=== PATIENT | female | born 1955 | race Caucasian/White ===

== ENCOUNTER 2019-03-26 23:01 | Emergency (ER) | payer OTHER ==
[2019-03-27] MEDS ORDERED: Cephalexin 500 MG Cap PO STA (00:26)
[2019-03-27] MEDS ORDERED: Bupivacaine 0.5% 10 ML SDV INJECT ONE (00:26)
[2019-03-27] MEDS ORDERED: Lidocaine 1% 10 ML MDV INJECT ONE (00:26)
--- NOTE | 2019-03-27 00:28 | EDM.PDOC ---
ED HPI GENERAL MEDICAL PROBLEM - General Chief Complaint: Laceration Stated Complaint: HAND LACERATION Time Seen by Provider: 03/27/19 00:18 Source of Information: Reports: Patient, Other (Coworker) History Limitations: Reports: No Limitations - History of Present Illness INITIAL COMMENTS - FREE TEXT/NARRATIVE: Mrs. Newman is a very pleasant 63-year-old woman with no significant past medical history, who states that she slipped around 22:50 while at work at [employer], accidentally impaling her left thumb on a piece of metal. The metal entered just proximal to her MCP joint, exiting at the IP joint. The patient states that she was actually hung up on the metal, and someone had to come to her aid to get her off of the metal. Other than the lacerations to her thumb, she is otherwise uninjured. The patient states that her last tetanus vaccination was on 06/13/2018. The patient's PCP is Gifty Beal NP. 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 ED EXAM, SKIN/RASH Exam: See Below Exam Limited By: No Limitations General Appearance: Alert, WD/WN, No Apparent Distress Extremities: Other (There is an irregular laceration measuring about 2.5 cm, just proximal to the dorsal aspect of the patient's left first MCP joint. There is an additional roughly linear laceration measuring approximately 1 cm over the dorsal aspect of the first IP joint. The patient is able to extend her thumb fairly strongly, and she denies tingling or numbness to the thumb. Vascular status of the thumb appears to be intact.) ED SKIN PROCEDURES - Laceration/Wound Repair Left Hand Appearance: Subcutaneous, Irregular, Clean Distal NVT: Neuro & Vascular Intact, No Tendon Injury Anesthetic Type: Local Local Anesthesia - Lidocaine (Xylocaine): 1% Plain (50:50 admixture) Local Anesthesia - Bupivicaine (Marcaine): 0.5% Plain (50:50 admixture) Local Anesthetic Volume: 2cc Skin Prep: Providone-Iodine (Betadine) Exploration/Debridement/Repair: Wound Explored, In a Bloodless Field, Explored to Base, No Foreign Material Found Lac/Wound length In cm: 2.5 Suture Size: 3-0 # of Sutures: 5 Suture Type: Nylon (Ethilon), Interrupted, Simple Drain Placement: No Sterile Dressing Applied: Nurse Tetanus Status Addressed: Yes Complications: No Course - Vital Signs Last Recorded V/S: Last Vital Signs Temp 37.0 C 03/26/19 23:13 Pulse 61 03/26/19 23:13 Resp 17 03/26/19 23:13 BP 149/84 H 03/26/19 23:13 Pulse Ox 99 03/26/19 23:13 - Orders/Labs/Meds Meds: Medications Discontinued Medications Generic Name Dose Route Start Last Admin Trade Name Vishal PRN Reason Stop Dose Admin Bupivacaine HCl 10 ml 03/27/19 00:26 03/27/19 01:54 Sensorcaine-Mpf 0.5% INJECT 03/27/19 00:27 10 ml ONETIME ONE Administration Cephalexin 500 mg 03/27/19 00:26 03/27/19 02:24 Keflex PO 03/27/19 00:27 500 mg ONETIME STA Administration Lidocaine HCl 10 ml 03/27/19 00:26 03/27/19 01:54 Xylocaine 1% INJECT 03/27/19 00:27 10 ml ONETIME ONE Administration - Re-Assessments/Exams Free Text/Narrative Re-Assessment/Exam: 03/27/19 00:27 The patient has what is essentially a puncture wound to the dorsal aspect of her left thumb, entering by the MCP joint, exiting via the IP joint. I'm going to relatively loosely suture the proximal laceration, leaving the distal laceration open to allow drainage of the wound, and start the patient on Keflex , but she will need to follow-up with a Hand Surgeon, to make sure that there are no significant underlying tendinous injuries, and to monitor for an infection. 03/27/19 02:11 Following skin prep with Betadine, sterile towels were laid to establish a sterile field. The wound over the patient's left first MCP joint was infiltrated with a 50:50 admixture of lidocaine 1% without epinephrine and bupivacaine 0.5% without epinephrine, to good anesthetic effect. The wound was then loosely approximated with 5 simple interrupted sutures, using 3-0 Ethilon. The patient tolerated the procedure well. Antibiotics ointment will be applied to both the proximal and distal thumb lacerations, and each will be covered with a sterile dressing. The patient will be started on Keflex here in the ED, and I will refer her to a Hand Surgeon. I am told that Dr. Crisostomo will not be available for the rest of the month, therefore the patient will need to go to [place]. 03/27/19 02:22 Case discussed with [facility] at 02:16. Case then discussed with Dr. Trinidad, Hand Surgeon at [facility], at 02: 20. He agreed with the choice of antibiotic, and said that he can see the patient in his clinic tomorrow, 03/28/2019. Departure - Departure Time of Disposition: 02:23 Disposition: Home, Self-Care 01 Condition: Good Clinical Impression: Laceration of left thumb - Discharge Information *PRESCRIPTION DRUG MONITORING PROGRAM REVIEWED*: Not Applicable *COPY OF PRESCRIPTION DRUG MONITORING REPORT IN PATIENT JESS: Not Applicable Prescriptions: Cephalexin [Keflex] 1 tab PO Q6H #28 capsule Instructions: Laceration Care, Adult, [id number] Referrals: Gifty Beal NP [Primary Care Provider] - Michael Trinidad Sr, MD [Physician] - Forms: ED Department Discharge Additional Instructions: You were seen in the emergency room after accidentally impaling your left thumb on a piece of metal at work. There were 2 lacerations to your thumb, a larger proximal wound, and a smaller distal wound. The larger proximal wound was closed with 5 sutures, but the smaller distal wound was intentionally left unsutured, in order to allow the wound to drain. Keep the wounds clean with ordinary soap and water when you bathe. Pat dry, then apply a smear of bacitracin ointment to both of the wounds. Cover both wounds with a clean dressing, daily. Don't allow the wounds to get wet, other than when you are bathing. You have been started on the antibiotic Keflex. A prescription for Keflex has been sent to the [facility], located just south and across [address] from [facility]. Take one tablet of Keflex every 6 hours, starting this morning, 03/27/2019, as prescribed. Finish the entire prescription unless told otherwise by a doctor. Take [id number] ibuprofen, 2-3 tablets (400-600 mg) every 8 hours, with food, as needed for discomfort. Follow-up with the Hand Surgeon Dr. Michael Trinidad in his office in [place] this coming 03/28/2019. Call first thing this morning to make an appointment. That the talent consultant know that this is a follow-up from the ER. If any other problems, please do not hesitate to return to the ER.
== END 2019-03-27 02:40 | disposition home or self-care (01) ==
LOC: JD.ED 23:01
DX: S61.012A Laceration without foreign body of left thumb without damage to nail, initial encounter (principal); W01.10XA Fall on same level from slipping, tripping and stumbling with subsequent striking against unspecified object, initial encounter
CPT/HCPCS: 12001; 99282; A9270; J2001; J3490; 99283